=== PATIENT | male | born 1935 | race Caucasian/White ===

== ENCOUNTER 2018-10-10 15:46 | Inpatient (IN) ==
[2018-10-10] MEDS ORDERED: Fluticasone Propionate Nasal 50 MCG/SPRAY BOTTLE NS PRN (22:16)
[2018-10-10] MEDS ORDERED: D5% in Water 1,000 ML IVC PRN (22:40)
[2018-10-10] MEDS ORDERED: Dextrose Gel 15 GM/37.5 ML TUBE PO PRN ×2 (22:40)
[2018-10-10] MEDS ORDERED: *HR* Dextrose 50 % in Water (Syg) 50 ML SYRINGE IVP PRN (22:40)
[2018-10-11 05:29] LABS: Hematocrit 29.8 % (37.5-50.1); Mean Corpuscular HGB Conc 33.6 g/dL (31.6-35.5); Mean Corpuscular Hemoglobin 33.2 pg (28.0-33.3); Platelet Count 283 K/mcL (140-400); Red Blood Count 3.01 M/mcL (4.19-5.50); Red Cell Distribution Width 13.5 % (11.5-14.5)
[2018-10-11 05:49] LABS: BUN/Creatinine Ratio 21 (6-26); Blood Urea Nitrogen 28 mg/dL (8-23); Calcium 8.6 mg/dL (8.6-10.3); Carbon Dioxide 28 mEq/L (23-29); Chloride 102 mEq/L (98-107); Glucose 331 mg/dL (70-105); Osmolality,Calculated 300 (280-300); Potassium 4.7 mEq/L (3.5-5.1); Sodium 136 mEq/L (136-145); eGFR For Non-African Americans 50 (> 60)
[2018-10-11] MEDS ORDERED: Bisacodyl 10 MG RECTAL SUPPOSITORY RC ONE (06:00)
[2018-10-11] MEDS: Insulin LISPRO 300 UNITS/3 ML VIAL SQ SCH ×3 (07:57→16:30)
[2018-10-11] MEDS: Metoprolol XL (24 HR) Succ 25 MG TAB.ER.24H PO SCH (07:58)
[2018-10-11] MEDS: Aspirin Enteric Coated 81 MG Tablet PO SCH (07:58)
[2018-10-11] MEDS: amLODIPine 5 MG TABLET PO SCH (07:59)
[2018-10-11] MEDS: *HR* OxyCODONE Immed Rel 5 MG TABLET PO PRN ×2 (08:00→14:57)
[2018-10-11] MEDS ORDERED: Insulin DETEMIR 100 UNIT/ML X5UNITS SQ SCH (09:00)
--- NOTE | 2018-10-11 11:21 | Internal Med History&Physical ---
Date of Encounter: 10/11/18 Time of Encounter: 11:18 Assessment and Plan (1) S/P kyphoplasty Current visit: Yes Status: Acute Patient admitted here for deconditioning after a kyphoplasty of an L1 compression fracture. Patient had experienced uncontrolled pain prior to kyphoplasty and states that his pain has much improved after his procedure. Surgical incision appears healthy and intact. Patient states to current pain medications have been effective on allowing him to mobilize. Patient has been participating in physical therapy today. No neurological deficits noted on exam. Patient with history of lumbar disc disease. We will continue with current plan of care. (2) CAD (coronary artery disease) Current visit: Yes Status: Chronic No acute issues. Patient has denied any chest discomforts or palpitations. Vital signs are stable. We will continue with current plan of care and medications. Qualifiers: Coronary Disease-Associated Artery/Lesion type: [place] artery [place] vs. transplanted heart: unspecified whether [place] or transplanted heart Associated angina: with unspecified angina Qualified Code(s): I25.119 - Atherosclerotic heart disease of [place] coronary artery with unspecified angina pectoris (3) Diabetes mellitus Current visit: No Status: Chronic Patients glucose currently has been uncontrolled with fingerstick readings greater than 300. We will evaluate patient's long-acting insulin and continue coverage with sliding scale. We will obtain a hemoglobin A1c on next blood draw. Qualifiers: Diabetes mellitus type: type 2 Diabetes mellitus vermin exterminator insulin use: with vermin exterminator use Diabetes mellitus complication status: without complication Qualified Code(s): E11.9 - Type 2 diabetes mellitus without complications; Z79.4 - alf (current) use of insulin (4) Hypertension Current visit: Yes Status: Chronic Vital signs are stable. We will continue with current medications. Qualifiers: Hypertension type: unspecified Qualified Code(s): I10 - Essential (primary) hypertension (5) CKD (chronic kidney disease), stage III Current visit: No Status: Chronic No acute issues this time. Patient's most recent creatinine was 1.35. We will continue to monitor renal status with serial labs. We will continue with current medications Internal Medicine - H&P: HPI Chief complaint: L1 compression Fx Admitted From: Hospital to Hospital Transfer Plans for Post Hospital Care: Home History of present illness: Mr. Briggs is a 82 year old male, who was transferred here from [facility] where he was treated for his L1 compression fracture. Patient was found to have a L1 compression fracture and was experiencing uncontrolled pain. Patient was treated by Dr. Valera with a kyphoplasty which the patient states almost immediately relieved his pain. Patient states that his pain has mostly been to his upper lumbar region and denied any radicular symptoms. Per medical records patient has showed no neurological deficits on exam. Patient has a history of a previous L3-L5 laminectomy, CAD, DM, OA, and hypertension. Patient states he still continues to have slight amount of pain to his upper lumbar area which increases with mobilization, but his pain meds currently have been effective on allowing him to mobilize. Patient denies any current radicular symptoms, dyspnea or chest discomforts. Past Med Surg Social Fam HX - Past Medical History Medical history: arthritis, cancer, coronary artery disease, diabetes, hyperlipidemia, hypertension Additional medical history: skin ca removed face, chronic back pain, spinal canal stenosis, and claustrophobia Psychiatric history: no psych history - Past Surgical History Surgical History: angioplasty/stent Additional surgical history: LUMBAR FUSION/RECONSTRUCTION/HARDWARE, KYPHOPLASTY - Social History Smoking Status: Never smoker Smokeless Tobacco Status: No Alcohol use: none Drug use: none - Family History Father Adopted: No Living Status: Age at : 59 Hx Family Cardiac Disorders: No Hx Family Respiratory Disorders: No Hx Family Cancer: Yes Hx Family GI Disorders: No Hx Family Endocrine Disorder: No Hx Family Neuromuscular Disorders: No Hx Family Neurologic Disorders: No Hx Family HEENT Disorders: No Hx Family Autoimmune Disorders: No Mother Living Status: Hx Family Cardiac Disorders: Yes Hx Family Respiratory Disorders: No Hx Family Cancer: No Hx Family GI Disorders: No Hx Family Endocrine Disorder: No Hx Family Neuromuscular Disorders: No Hx Family Neurologic Disorders: No Hx Family HEENT Disorders: No Hx Family Autoimmune Disorders: No Internal Medicine - H&P: Meds Aspirin [Lo-Dose Aspirin EC] 81 mg PO DAILY 10/05/18 [History] Fluticasone Propionate Nasal [Flonase] 1 spray NS HS PRN 10/05/18 [History] Ibuprofen [Advil] 600 mg PO TID PRN 10/05/18 [History] Insulin Glargine,Hum.rec.anlog [Lantus Solostar] 20 unit SQ DAILY 10/05/18 [History] Levothyroxine Sodium [Levoxyl] 175 mcg PO DAILY 10/05/18 [History] Losartan Potassium 100 mg PO DAILY 10/05/18 [History] Metoprolol Succinate [Toprol Xl] 12.5 mg PO DAILY 10/05/18 [History] Simvastatin [Zocor] 5 mg PO DAILY 10/05/18 [History] Tramadol HCl [Ultram] 50 mg PO HS PRN 10/05/18 [History] amLODIPine [Norvasc] 2.5 mg PO DAILY 10/08/18 [History] Docusate [Colace] 100 mg PO BID PRN capsule 10/10/18 [Rx] Allergy/AdvReac Type Severity Reaction Status Date / Time Penicillins [PCN] AdvReac Rash Verified 10/05/18 08:42 All Systems PM: A 10-system review of systems was performed and is negative for pertinent findings except as documented above in the HPI. - Constitutional Constitutional: as per HPI, no chills, no fever(s), no night sweats - EENT Eyes: as per HPI, no change in vision, no discharge, no pain, no photophobia Ears: no ear discharge, no ear pain, no tinnitus Nose, mouth and throat: no dysphagia, no nasal discharge, no neck pain, no sore throat - Cardiovascular Cardiovascular ROS IM: as per HPI, no chest pain, no diaphoresis, no dyspnea, no lightheadedness, no palpitations, no syncope - Respiratory Respiratory: as per HPI, no cough, no dyspnea, no wheezing, no excessive phlegm production - Gastrointestinal Gastrointestinal: as per HPI, no abdominal pain, no diarrhea, no hematemesis, no hematochezia, no melena, no nausea, no vomiting - Genitourinary Genitourinary ROS male: as per HPI - Musculoskeletal Musculoskeletal ROS IM: as per HPI, no numbness, no tingling - Integumentary Integumentary IM: as per HPI, no rash, no unusual bruising - Neurological Neurological ROS: as per HPI, no confusion, no convulsions, no focal weakness, no numbness, no tingling, no tremor(s) - Psychiatric Psychiatric: as per HPI - Endocrine Endocrine IM: as per HPI - Hematologic/Lymphatic Hematologic/Lymphatic: no easy bruising - Constitutional Vitals: Temp Pulse Resp BP Pulse Ox 98.2 F 71 16 168/83 99 10/11/18 07:35 10/11/18 07:35 10/11/18 07:35 10/11/18 07:35 10/11/18 07:35 General appearance: Present: A&O X 3, pleasant - Head Head exam: Present: atraumatic, normocephalic - Eye Eye exam: Present: PERRL, conjuntiva pink, sclera anicteric Pupils: Present: PERRL - Neck Neck exam general surgery: Present: supple, trachea midline. Absent: lymphadenopathy - Respiratory Respiratory exam: Present: CTAB. Absent: accessory muscle use, rales, rhonchi, wheezes - Cardiovascular Cardiovascular exam: Present: RRR, +S1, +S2. Absent: diastolic murmur, gallop, rubs, systolic murmur - GI/Abdominal GI/Abdominal exam: Present: normal bowel sounds, soft, no peritoneal signs. Absent: distended, tenderness - Extremities Exam Extremities exam: Present: warm, radial pulses palpable and symmetrical. Absent: calf tenderness, cyanotic, pedal edema - Back Exam Additional comments: Patient has a midline lumbar surgical incision to the upper lumbar area which is dry and intact. No erythema or edema noted. - Neurological Exam Neurological exam: Present: CN II-XII intact, oriented X3, no focal deficits. Absent: pronater drift, facial droop, speech deficit - Skin Skin exam: Present: dry, intact Internal Med - H&P Results - Labs CBC & Chem 7: 10/11/18 05:15 10/11/18 05:15 Labs: Short CBC 10/11/18 Range/Units 05:15 WBC 5.1 (4.3-11.1) K/mcL Hgb 10.0 L (12.9-16.9) g/dL Hct 29.8 L (37.5-50.1) % Plt Count 283 (140-400) K/mcL BMP 10/11/18 05:15 Sodium 136 Potassium 4.7 Chloride 102 Carbon Dioxide 28 BUN 28 H Creatinine 1.35 H Glucose 331 H Calcium 8.6 - VTE Documentation of Mechanical Device: Graduated compression elastic hosiery
[2018-10-11] MEDS ORDERED: Insulin LISPRO 300 UNITS/3 ML VIAL SQ SCH (21:00)
[2018-10-12] MEDS: Metoprolol XL (24 HR) Succ 25 MG TAB.ER.24H PO SCH (08:16)
[2018-10-12] MEDS: amLODIPine 5 MG TABLET PO SCH (08:17)
[2018-10-12] MEDS: Aspirin Enteric Coated 81 MG Tablet PO SCH (08:19)
[2018-10-12] MEDS: *HR* OxyCODONE Immed Rel 5 MG TABLET PO PRN (08:19)
[2018-10-12] MEDS: Insulin LISPRO 300 UNITS/3 ML VIAL SQ SCH ×4 (08:23→21:19)
[2018-10-12] MEDS ORDERED: Insulin DETEMIR 100 UNIT/ML X5UNITS SQ SCH (09:00)
[2018-10-12] MEDS ORDERED: Insulin DETEMIR 100 UNIT/ML per UNIT SQ ONE (10:30)
--- NOTE | 2018-10-12 13:56 | Internal Med Progress Note ---
Addendum entered and electronically signed by Valentina Thorpe 10/14/18 17:43: I have personally performed a face to face evaluation on this patient. I have reviewed and agree with the care plan. Original Note: Date of Encounter: 10/12/18 Time of Encounter: 13:50 - Assessment and plan (1) S/P kyphoplasty Current Visit: Yes Status: Acute Assessment and plan: No acute issues. Patient's surgical incision to lumbar spine appears healthy and intact. Patient states that his pain has been well tolerated with current pain medications and that his pain was was relieved following his kyphoplasty. Patient has been participating in physical therapy and progressing well. (2) CAD (coronary artery disease) Current Visit: Yes Status: Chronic Assessment and plan: No acute issues. Patient denies any chest discomforts or palpitations. Vital signs stable. We will continue with current medications. Qualifiers: Coronary Disease-Associated Artery/Lesion type: [place] artery [place] vs. transplanted heart: unspecified whether [place] or transplanted heart Associated angina: with unspecified angina Qualified Code(s): I25.119 - Atherosclerotic heart disease of [place] coronary artery with unspecified angina pectoris (3) Diabetes mellitus Current Visit: Yes Status: Chronic Assessment and plan: Patients glucose has been fairly elevated up until the last 24 hours. Patient had several lower readings today. We will decrease his long-acting insulin dosing and continue to monitor his fingersticks and cover with sliding scale. Qualifiers: Diabetes mellitus type: type 2 Diabetes mellitus long-term insulin use: with long-term use Diabetes mellitus complication status: without complication Qualified Code(s): E11.9 - Type 2 diabetes mellitus without complications; Z79.4 - intermediate card tender (current) use of insulin (4) Hypertension Current Visit: Yes Status: Chronic Assessment and plan: Final signs stable. We will continue with current medications. Qualifiers: Hypertension type: unspecified Qualified Code(s): I10 - Essential (primary) hypertension - Time Spent With Patient less than 15 minutes - Subjective Interval history: Patient appears relaxed currently denies any discomforts or shortness of breath. Patient states that physical therapy has been progressing well. He denies any acute neurological changes. - Constitutional Vitals: Temp Pulse Resp BP Pulse Ox 97.9 F 69 16 144/79 98 10/12/18 07:00 10/12/18 07:00 10/12/18 07:00 10/12/18 07:00 10/12/18 07:00 General appearance: Present: A&O X 3, pleasant - Head Head exam: Present: atraumatic, normocephalic - Eye Eye exam: Present: PERRL, conjuntiva pink, sclera anicteric Pupils: Present: PERRL - Neck Neck exam general surgery: Present: supple, trachea midline. Absent: lymphadenopathy - Respiratory Respiratory exam: Present: CTAB. Absent: accessory muscle use, rales, rhonchi, wheezes - Cardiovascular Cardiovascular exam: Present: RRR, +S1, +S2. Absent: diastolic murmur, gallop, rubs, systolic murmur - GI/Abdominal GI/Abdominal exam: Present: normal bowel sounds, soft, no peritoneal signs. Absent: distended, tenderness - Extremities Exam Extremities exam: Present: warm, radial pulses palpable and symmetrical. Absent: calf tenderness, cyanotic, pedal edema - Back Exam Additional comments: Midline lumbar incision appears dry and intact. No erythema - Neurological Exam Neurological exam: Present: CN II-XII intact, oriented X3, no focal deficits. Absent: pronater drift, facial droop, speech deficit - Skin Skin exam: Present: dry, intact Internal Medicine: Result - Labs CBC & Chem 7: 10/11/18 05:15 10/11/18 05:15 - VTE Documentation of Mechanical Device: Graduated compression elastic hosiery Consult Discharge Plan - Plan Referrals: Emily Parson COMMERCIAL LENDING ASSISTANT [Primary Care Provider] -
[2018-10-13] MEDS: *HR* OxyCODONE Immed Rel 5 MG TABLET PO PRN ×4 (02:09→20:51)
[2018-10-13] MEDS: Aspirin Enteric Coated 81 MG Tablet PO SCH (07:48)
[2018-10-13] MEDS: amLODIPine 5 MG TABLET PO SCH (07:48)
[2018-10-13] MEDS: Metoprolol XL (24 HR) Succ 25 MG TAB.ER.24H PO SCH (07:49)
[2018-10-13] MEDS: Insulin DETEMIR 100 UNIT/ML X5UNITS SQ SCH (07:50)
[2018-10-13] MEDS: Insulin LISPRO 300 UNITS/3 ML VIAL SQ SCH ×4 (07:53→20:51)
[2018-10-13] MEDS ORDERED: Insulin DETEMIR 100 UNIT/ML X5UNITS SQ SCH (09:00)
[2018-10-14] MEDS: *HR* OxyCODONE Immed Rel 5 MG TABLET PO PRN ×3 (05:30→20:04)
[2018-10-14] MEDS: Insulin LISPRO 300 UNITS/3 ML VIAL SQ SCH ×4 (07:48→21:20)
[2018-10-14] MEDS: Insulin DETEMIR 100 UNIT/ML X5UNITS SQ SCH (07:48)
[2018-10-14] MEDS: Aspirin Enteric Coated 81 MG Tablet PO SCH (07:51)
[2018-10-14] MEDS: amLODIPine 5 MG TABLET PO SCH (07:51)
[2018-10-14] MEDS: Metoprolol XL (24 HR) Succ 25 MG TAB.ER.24H PO SCH (07:52)
--- NOTE | 2018-10-14 17:46 | Internal Med Progress Note ---
Date of Encounter: 10/13/18 Time of Encounter: 14:00 - Subjective Interval history: - Assessment and plan (1) S/P kyphoplasty Current Visit: Yes Status: Acute Assessment and plan: No acute issues. Patient's surgical incision to lumbar spine appears healthy and intact. Patient states that his pain has been well tolerated with current pain medications and that his pain was was relieved following his kyphoplasty. Patient has been participating in physical therapy and progressing well. (2) CAD (coronary artery disease) Current Visit: Yes Status: Chronic Assessment and plan: No acute issues. Patient denies any chest discomforts or palpitations. Vital signs stable. We will continue with current medications. Qualifiers: Coronary Disease-Associated Artery/Lesion type: [place] artery [place] vs. transplanted heart: unspecified whether [place] or transplanted heart Associated angina: with unspecified angina Qualified Code(s): I25.119 - Atherosclerotic heart disease of [place] coronary artery with unspecified angina pectoris (3) Diabetes mellitus Current Visit: Yes Status: Chronic Assessment and plan: Patients glucose has been fairly elevated up until the last 24 hours. Patient had several lower readings today. We will decrease his long-acting insulin dosing and continue to monitor his fingersticks and cover with sliding scale. Qualifiers: Diabetes mellitus type: type 2 Diabetes mellitus senior living insulin use: w ith moth exterminator use Diabetes mellitus complication status: without complication Qualified Code(s): E11.9 - Type 2 diabetes mellitus without complications; Z79.4 - long-term (current) use of insulin (4) Hypertension Current Visit: Yes Status: Chronic Assessment and plan: Final signs stable. We will continue with current medications. Qualifiers: Hypertension type: unspecified Qualified Code(s): I10 - Essential (primary) hypertension - Time Spent With Patient less than 15 minutes - Subjective Interval history: Patient appears relaxed currently denies any discomforts or shortness of breath. Patient states that physical therapy has been progressing well. He denies any acute neurological changes. He reports he is eating ok and pain is controlle EXAM General appearance: Present: A&O X 3, pleasant elderly WM - Head Head exam: Present: atraumatic, normocephalic - Eye Eye exam: Present: PERRL, conjuntiva pink, sclera anicteric Pupils: Present: PERRL - Neck Neck exam general surgery: Present: supple, trachea midline. Absent: lymphadenopathy - Respiratory Respiratory exam: Present: CTAB. Absent: accessory muscle use, rales, rhonchi, wheezes - Cardiovascular Cardiovascular exam: Present: RRR, +S1, +S2. Absent: diastolic murmur, gallop, rubs, systolic murmur - GI/Abdominal GI/Abdominal exam: Present: normal bowel sounds, soft, no peritoneal signs. Absent: distended, tenderness - Extremities Exam Extremities exam: Present: warm, radial pulses palpable and symmetrical. Absent: calf tenderness, cyanotic, pedal edema - Back Exam Additional comments: Midline lumbar incision appears dry and intact. No erythema - Neurological Exam Neurological exam: Present: CN II-XII intact, oriented X3, no focal deficits. Absent: pronater drift, facial droop, speech deficit - Skin Skin exam: Present: dry, intact - Constitutional Vitals: Temp Pulse Resp BP Pulse Ox 97.9 F 66 16 125/71 99 10/14/18 07:00 10/14/18 07:00 10/14/18 07:00 10/14/18 07:00 10/14/18 07:00 General appearance: Present: A&O X 3, pleasant Internal Medicine: Result - Labs CBC & Chem 7: 10/11/18 05:15 10/11/18 05:15 - VTE Documentation of Mechanical Device: Graduated compression elastic hosiery Consult Discharge Plan - Plan Referrals: Emily Parson CNP [Primary Care Provider] -
--- NOTE | 2018-10-14 17:47 | Internal Med Progress Note ---
Date of Encounter: 10/14/18 Time of Encounter: 15:00 - Subjective Interval history: - Assessment and plan (1) S/P kyphoplasty Current Visit: Yes Status: Acute Assessment and plan: No acute issues. Patient's surgical incision to lumbar spine appears healthy and intact. Patient states that his pain has been well tolerated with current pain medications and that his pain was was relieved following his kyphoplasty. Patient has been participating in physical therapy and progressing well. (2) CAD (coronary artery disease) Current Visit: Yes Status: Chronic Assessment and plan: No acute issues. Patient denies any chest discomforts or palpitations. Vital signs stable. We will continue with current medications. Qualifiers: Coronary Disease-Associated Artery/Lesion type: [place] artery [place] vs. transplanted heart: unspecified whether [place] or transplanted heart Associated angina: with unspecified angina Qualified Code(s): I25.119 - Atherosclerotic heart disease of [place] coronary artery with unspecified angina pectoris (3) Diabetes mellitus Current Visit: Yes Status: Chronic Assessment and plan: Patients glucose has been fairly elevated up until the last 24 hours. Patient had several lower readings today. We will decrease his long-acting insulin dosing and continue to monitor his fingersticks and cover with sliding scale. Qualifiers: Diabetes mellitus type: type 2 Diabetes mellitus fdc insulin use: w ith laborer marine terminal use Diabetes mellitus complication status: without complication Qualified Code(s): E11.9 - Type 2 diabetes mellitus without complications; Z79.4 - [facility] (current) use of insulin (4) Hypertension Current Visit: Yes Status: Chronic Assessment and plan: Final signs stable. We will continue with current medications. Qualifiers: Hypertension type: unspecified Qualified Code(s): I10 - Essential (primary) hypertension - Time Spent With Patient less than 15 minutes - Subjective Interval history: Patient appears relaxed currently denies any discomforts or shortness of breath. Patient states that physical therapy has been progressing well. He denies any acute neurological changes. He reports he is eating ok and pain is controlle EXAM General appearance: Present: A&O X 3, pleasant elderly WM - Head Head exam: Present: atraumatic, normocephalic - Eye Eye exam: Present: PERRL, conjuntiva pink, sclera anicteric Pupils: Present: PERRL - Neck Neck exam general surgery: Present: supple, trachea midline. Absent: lymphadenopathy - Respiratory Respiratory exam: Present: CTAB. Absent: accessory muscle use, rales, rhonchi, wheezes - Cardiovascular Cardiovascular exam: Present: RRR, +S1, +S2. Absent: diastolic murmur, gallop, rubs, systolic murmur - GI/Abdominal GI/Abdominal exam: Present: normal bowel sounds, soft, no peritoneal signs. Absent: distended, tenderness - Extremities Exam Extremities exam: Present: warm, radial pulses palpable and symmetrical. Absent: calf tenderness, cyanotic, pedal edema - Back Exam Additional comments: Midline lumbar incision appears dry and intact. No erythema - Neurological Exam Neurological exam: Present: CN II-XII intact, oriented X3, no focal deficits. Absent: pronater drift, facial droop, speech deficit - Skin Skin exam: Present: dry, intact - Constitutional Vitals: Temp Pulse Resp BP Pulse Ox 97.9 F 66 16 125/71 99 10/14/18 07:00 10/14/18 07:00 10/14/18 07:00 10/14/18 07:00 10/14/18 07:00 General appearance: Present: A&O X 3, pleasant Internal Medicine: Result - Labs CBC & Chem 7: 10/11/18 05:15 10/11/18 05:15 - VTE Documentation of Mechanical Device: Graduated compression elastic hosiery Consult Discharge Plan - Plan Referrals: Emily Parson CNP [Primary Care Provider] -
[2018-10-15] MEDS: *HR* OxyCODONE Immed Rel 5 MG TABLET PO PRN (05:14)
[2018-10-15] MEDS: Metoprolol XL (24 HR) Succ 25 MG TAB.ER.24H PO SCH (07:59)
[2018-10-15] MEDS: Aspirin Enteric Coated 81 MG Tablet PO SCH (07:59)
[2018-10-15] MEDS: amLODIPine 5 MG TABLET PO SCH (08:00)
[2018-10-15] MEDS: Insulin LISPRO 300 UNITS/3 ML VIAL SQ SCH ×4 (08:05→21:45)
[2018-10-15] MEDS: Insulin DETEMIR 100 UNIT/ML X5UNITS SQ SCH (08:07)
[2018-10-15 09:49] LABS: Basophils # 0.1 K/mcL (0.0-0.2); Basophils % 0.8 %; Eosinophils # 0.5 K/mcL (0.0-0.6); Eosinophils % 6.3 %; Hematocrit 32.6 % (37.5-50.1); Hemoglobin 10.7 g/dL (12.9-16.9); Immature Granulocytes % 0.8 % (0-4); Lymphocytes # 1.3 K/mcL (0.6-4.6); Lymphocytes % 17.4 %; Mean Corpuscular HGB Conc 32.8 g/dL (31.6-35.5); Mean Corpuscular Hemoglobin 33.2 pg (28.0-33.3); Mean Corpuscular Volume 101.2 fL (83.0-100.0); Mean Platelet Volume 9.9 fL (9.4-12.4); Monocytes # 0.6 K/mcL (0.0-1.3); Monocytes % 7.4 %; Platelet Count 367 K/mcL (140-400); Red Blood Count 3.22 M/mcL (4.19-5.50); Red Cell Distribution Width 13.3 % (11.5-14.5); Segmented Neutrophils % 67.3 %
[2018-10-15 10:19] LABS: Calcium 9.2 mg/dL (8.6-10.3); Potassium 4.9 mEq/L (3.5-5.1)
--- NOTE | 2018-10-15 14:04 | Internal Med Progress Note ---
Addendum entered and electronically signed by Alberto Scruggs MD 10/15/18 16:00: I have personally performed a face to face evaluation on this patient. I have r eviewed and agree with the care plan. History and Exam by me shows: Patient son has concerns about his eating. On further questioning, the patient states that he has not been eating well since [place]. He attributes this pain. I related that this might be related to pain and pain medicine. We will treat him with Tylenol and tramadol and try to avoid stronger pain medicines. He feels that he is moving his bowels well, about every other day. Patient denies other medical issues. Discussed care with other providers and/or nursing. Patient has no complaint of chest discomfort, dyspnea, orthopnea, palpitations, nausea or vomiting, constipation or diarrhea, other changes in bowel habits, difficulty with urination, rash or itching, or other new complaints, except as mentioned above. Review of systems is otherwise negative. Examination: (Except as mentioned above): General: In no apparent distress. Alert and oriented 3. Nondiaphoretic. Head: Atraumatic and normocephalic. Respiratory: No use of accessory muscles. Lungs are clear throughout. Normal airflow. Cardiovascular: Regular rate and rhythm without murmur appreciated. Abdomen: Bowel sounds are normal. No hepatosplenomegaly mass or tenderness appreciated. Obese and therefore difficult to palpate deeply. Extremities: No cyanosis clubbing or edema. Patient is examined upright at bedside and this also limits exam. Skin: Warm and non-diaphoretic with no new lesions noted. Original Note: Date of Encounter: 10/15/18 Time of Encounter: 14:02 - Assessment and plan (1) S/P kyphoplasty Current Visit: Yes Status: Acute Assessment and plan: No acute issues. Patient's surgical incision to lumbar spine appears healthy and intact. Patient states that his pain has been improving and resolving daily . Patient has been participating in physical therapy and progressing well. (2) CAD (coronary artery disease) Current Visit: Yes Status: Chronic Assessment and plan: No acute issues. Patient denies any chest discomforts or palpitations. Vital signs stable. We will continue with current medications. Qualifiers: Coronary Disease-Associated Artery/Lesion type: [place] artery [place] vs. transplanted heart: unspecified whether [place] or transplanted heart Associated angina: with unspecified angina Qualified Code(s): I25.119 - Atherosclerotic heart disease of [place] coronary artery with unspecified angina pectoris (3) Diabetes mellitus Current Visit: Yes Status: Chronic Assessment and plan: Patients glucose has been greater than 200 on multiple fingersticks. We will continue with sliding scale coverage and monitor needs for titration of his long-acting insulin. 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 We will continue with current medications. Qualifiers: Hypertension type: unspecified Qualified Code(s): I10 - Essential (primary) hypertension - Time Spent With Patient less than 15 minutes - Subjective Interval history: Patient appears relaxed currently denies any discomforts or shortness of breath. Patient states that physical therapy has been progressing well. He denies any acute neurological changes. Patient states that his pain has been resolving slowly over the past several days. - Constitutional Vitals: Temp Pulse Resp BP Pulse Ox 98.6 F 63 16 133/67 98 10/15/18 06:33 10/15/18 06:33 10/15/18 06:33 10/15/18 06:33 10/15/18 06:33 General appearance: Present: A&O X 3, pleasant - Head Head exam: Present: atraumatic, normocephalic - Eye Eye exam: Present: PERRL, conjuntiva pink, sclera anicteric Pupils: Present: PERRL - Neck Neck exam general surgery: Present: supple, trachea midline. Absent: lymphadenopathy - Respiratory Respiratory exam: Present: CTAB. Absent: accessory muscle use, rales, rhonchi, wheezes - Cardiovascular Cardiovascular exam: Present: RRR, +S1, +S2. Absent: diastolic murmur, gallop, rubs, systolic murmur - GI/Abdominal GI/Abdominal exam: Present: normal bowel sounds, soft, no peritoneal signs. Absent: distended, tenderness - Extremities Exam Extremities exam: Present: warm, radial pulses palpable and symmetrical. Absent: calf tenderness, cyanotic, pedal edema - Back Exam Additional comments: Patient has a midline lumbar surgical incision appears dry and intact with no edema or erythema noted. - Neurological Exam Neurological exam: Present: CN II-XII intact, oriented X3, no focal deficits. Absent: pronater drift, facial droop, speech deficit - Skin Skin exam: Present: dry, intact Internal Medicine: Result - Labs CBC & Chem 7: 10/15/18 09:34 10/15/18 09:34 Labs: Short CBC 10/15/18 Range/Units 09:34 WBC 7.4 (4.3-11.1) K/mcL Hgb 10.7 L (12.9-16.9) g/dL Hct 32.6 L (37.5-50.1) % Plt Count 367 (140-400) K/mcL Neutrophils # 5.0 (1.6-8.9) K/mcL BMP 10/15/18 09:34 Sodium 134 L Potassium 4.9 Chloride 101 Carbon Dioxide 25 BUN 41 H Creatinine 1.81 H Glucose 265 H Calcium 9.2 - VTE Documentation of Mechanical Device: Graduated compression elastic hosiery Consult Discharge Plan - Plan Referrals: Emily Parson, [facility] SEWER [Primary Care Provider] -
[2018-10-15] MEDS ORDERED: traMADol 50 MG TABLET PO PRN (14:28)
[2018-10-16] MEDS: Aspirin Enteric Coated 81 MG Tablet PO SCH (08:29)
[2018-10-16] MEDS: amLODIPine 5 MG TABLET PO SCH (08:29)
[2018-10-16] MEDS: Metoprolol XL (24 HR) Succ 25 MG TAB.ER.24H PO SCH (08:31)
[2018-10-16] MEDS: Insulin DETEMIR 100 UNIT/ML X5UNITS SQ SCH (08:37)
[2018-10-16] MEDS: Insulin LISPRO 300 UNITS/3 ML VIAL SQ SCH ×4 (08:37→22:06)
--- NOTE | 2018-10-16 11:35 | Internal Med Progress Note ---
Addendum entered and electronically signed by Alberto Scruggs MD 10/16/18 13:17: I have personally performed a face to face evaluation on this patient. I have r eviewed and agree with the care plan. History and Exam by me shows: Patient is without complaint. He his not moved his bowels in a couple of days we talked about the use of laxative, as well. Pain control is been acceptable, given the change to tramadol. Discussed care with other providers and/or nursing. Patient has no complaint of chest discomfort, dyspnea, orthopnea, palpitations, nausea or vomiting, constipation or diarrhea, other changes in bowel habits, difficulty with urination, rash or itching, or other new complaints, except as mentioned above. Review of systems is otherwise negative. Examination: (Except as mentioned above): General: In no apparent distress. Alert and oriented 3. Nondiaphoretic. Head: Atraumatic and normocephalic. Respiratory: No use of accessory muscles. Lungs are clear throughout. Normal airflow. Cardiovascular: Regular rate and rhythm without murmur appreciated. Abdomen: Bowel sounds are normal. No hepatosplenomegaly mass or tenderness appreciated. Obese and therefore difficult to palpate deeply. Extremities: No cyanosis clubbing or edema. Patient is examined upright in chair and this also limits exam. Skin: Warm and non-diaphoretic with no new lesions noted. Plan is to discharge him on 10/18/2018. Original Note: Date of Encounter: 10/16/18 Time of Encounter: 11:33 - Assessment and plan (1) S/P kyphoplasty Current Visit: Yes Status: Acute Assessment and plan: Incision healing. Follow up with surgeon as scheduled. Continue PT and OT. Will follow progress. Pain controlled with Tylenol and tramadol. (2) Diabetes mellitus Current Visit: Yes Status: Chronic Assessment and plan: Controlled with current medication. Continue sliding scale insulin. Monitor fingerstick blood sugar. 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 Monitor blood pressure. Qualifiers: Hypertension type: unspecified Qualified Code(s): I10 - Essential (primary) hypertension (4) CAD (coronary artery disease) Current Visit: Yes Status: Chronic Assessment and plan: Denies chest pain. Stable. Continue current medication. Qualifiers: Coronary Disease-Associated Artery/Lesion type: [place] artery [place] vs. transplanted heart: unspecified whether [place] or transplanted heart Associated angina: with unspecified angina Qualified Code(s): I25.119 - Atherosclerotic heart disease of [place] coronary artery with unspecified angina pectoris - Time Spent With Patient less than 15 minutes - Subjective Interval history: Participating well with therapy. Ambulating with Walker. Taking Tylenol or tramadol for pain. Hemoglobin stable at 10.7. Maintaining appetite and hydration. Denies any concerns at this time. - Constitutional Vitals: Temp Pulse Resp BP Pulse Ox 98.3 F 68 15 150/75 98 10/16/18 07:51 10/16/18 07:51 10/16/18 07:51 10/16/18 07:51 10/16/18 07:51 General appearance: Present: cooperative, A&O X 3, pleasant, no acute distress, answers questions appropriately - Head Head exam: Present: atraumatic, normocephalic - Eye Eye exam: Present: PERRL, conjuntiva pink, sclera anicteric Pupils: Present: PERRL - Neck Neck exam general surgery: Present: supple, trachea midline. Absent: lymphadenopathy - Respiratory Respiratory exam: Present: CTAB. Absent: accessory muscle use, rales, rhonchi, wheezes - Cardiovascular Cardiovascular exam: Present: RRR, +S1, +S2. Absent: diastolic murmur, gallop, rubs, systolic murmur - GI/Abdominal GI/Abdominal exam: Present: normal bowel sounds, soft, no peritoneal signs. Absent: distended, tenderness - Extremities Exam Extremities exam: Present: warm, radial pulses palpable and symmetrical. Absent: calf tenderness, cyanotic, pedal edema - Incison Comments: Mid lower thoracic incision, 2 sutures intact. No redness or drainage. - Neurological Exam Neurological exam: Present: CN II-XII intact, oriented X3, no focal deficits. Absent: pronater drift, facial droop, speech deficit - Skin Skin exam: Present: dry, intact Internal Medicine: Result - Labs CBC & Chem 7: 10/15/18 09:34 10/15/18 09:34 - VTE Documentation of Mechanical Device: Graduated compression elastic hosiery Consult Discharge Plan - Plan Referrals: Emily Parson, SPEED[employer] HAND [Primary Care Provider] -
[2018-10-16 16:15] LABS: Albumin 3.6 g/dL (3.5-5.7); Albumin/Globulin Ratio 1.4 (1.1-2.2); Bilirubin,Total 0.5 mg/dL (0.3-1.0); Calcium 9.3 mg/dL (8.6-10.3); Globulin 2.6 g/dL (2.4-3.5); Potassium 4.3 mEq/L (3.5-5.1); Total Protein 6.2 g/dL (6.4-8.9)
[2018-10-16 16:38] LABS: Thyroid Stimulating Hormone 0.733 mcIU/mL (0.340-5.600)
[2018-10-17 05:47] LABS: Calcium 8.7 mg/dL (8.6-10.3); Potassium 5.1 mEq/L (3.5-5.1)
[2018-10-17] MEDS: Insulin LISPRO 300 UNITS/3 ML VIAL SQ SCH ×4 (07:53→21:11)
[2018-10-17] MEDS: Metoprolol XL (24 HR) Succ 25 MG TAB.ER.24H PO SCH (07:55)
[2018-10-17] MEDS: amLODIPine 5 MG TABLET PO SCH (07:56)
[2018-10-17] MEDS: Aspirin Enteric Coated 81 MG Tablet PO SCH (07:56)
[2018-10-17] MEDS: Insulin DETEMIR 100 UNIT/ML X5UNITS SQ SCH (08:07)
--- NOTE | 2018-10-17 11:48 | Internal Med Progress Note ---
Date of Encounter: 10/17/18 Time of Encounter: 11:30 - Assessment and plan (1) Vertebral compression fracture Current Visit: No Status: Acute Assessment and plan: Patient is doing well after kyphoplasty. Plans for discharge tomorrow with continued therapy until then. Tylenol for pain management, only. (2) Hypertension Current Visit: Yes Status: Chronic Assessment and plan: Clinically stable. We will continue home regimen and follow. Qualifiers: Hypertension type: unspecified Qualified Code(s): I10 - Essential (primary) hypertension (3) Constipation Current Visit: No Status: Acute Assessment and plan: Resolved, per patient. Qualifiers: Constipation type: slow transit constipation Qualified Code(s): K59.01 - Slow transit constipation (4) Renal insufficiency Current Visit: No Status: Resolved Assessment and plan: Clinically and per laboratory, stable. (5) CAD (coronary artery disease) Current Visit: Yes Status: Chronic Assessment and plan: Stable without signs or symptoms. Qualifiers: Coronary Disease-Associated Artery/Lesion type: [place] artery [place] vs. transplanted heart: unspecified whether [place] or transplanted heart Associated angina: with unspecified angina Qualified Code(s): I25.119 - Atherosclerotic heart disease of [place] coronary artery with unspecified angina pectoris (6) Diabetes mellitus Current Visit: Yes Status: Chronic Assessment and plan: Well-tolerated and stable on current regimen. 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 He states that he has a home visit with his family, at 11:00 tomorrow morning. He asked questions about safety doses of Tylenol and I explained that I would like to tenisha p that below 3000 mg per day or that dose maximum. Patient has no complaint of chest discomfort, dyspnea, orthopnea, palpitations, nausea or vomiting, constipation or diarrhea, other changes in bowel habits, difficulty with urination, rash or itching, or other new complaints, except as mentioned above. Review of systems is otherwise negative. I discussed management of her care with nursing staff. - Constitutional Vitals: Temp Pulse Resp BP Pulse Ox 99.1 F 71 16 134/68 100 10/17/18 06:50 10/17/18 06:50 10/17/18 06:50 10/17/18 06:50 10/17/18 06:50 Exam: Discussed care with other providers and/or nursing. Patient has no complaint of chest discomfort, dyspnea, orthopnea, palpitations, nausea or vomiting, constipation or diarrhea, other changes in bowel habits, difficulty with urination, rash or itching, or other new complaints, except as mentioned above. Review of systems is otherwise negative. Examination: (Except as mentioned above): General: In no apparent distress. Alert and oriented 3. Nondiaphoretic. Head: Atraumatic and normocephalic. Respiratory: No use of accessory muscles. Lungs are clear throughout. Normal airflow. Cardiovascular: Regular rate and rhythm without murmur appreciated. Abdomen: Bowel sounds are normal. No hepatosplenomegaly mass or tenderness appreciated. Obese and therefore difficult to palpate deeply. The patient requires a wheelchair to successfully complete activities of daily living including: Toileting, feeding, bathing, dressing, and grooming. This includes daily tasks in the home. The wheelchair is necessary due to the patient's impaired ambulation and mobility restrictions as they would be unable to resolve these daily living tasks using a cane or walker. The patient is capable of using a wheelchair safely in the home and can maneuver within the home without problems; they have adequate access. They are able to self propel a wheelchair within the home. The patient has not expressed an unwillingness to use the wheelchair. Extremities: No cyanosis clubbing or edema. Skin: Warm and non-diaphoretic with no new lesions noted. Internal Medicine: Result - Labs CBC & Chem 7: 10/15/18 09:34 10/17/18 05:25 Labs: BMP 10/16/18 10/17/18 15:58 05:25 Sodium 139 137 Potassium 4.3 5.1 Chloride 105 106 Carbon Dioxide 27 28 BUN 50 H 45 H Creatinine 1.74 H 1.47 H Glucose 61 L 159 H Calcium 9.3 8.7 Liver Function 10/16/18 Range/Units 15:58 Total Bilirubin 0.5 (0.3-1.0) mg/dL AST 41 H (13-39) Units/L ALT 62 H (7-52) Units/L Alkaline Phosphatase 296 H (34-104) Units/L Albumin 3.6 (3.5-5.7) g/dL - VTE Documentation of Mechanical Device: Graduated compression elastic hosiery Consult Discharge Plan - Plan Referrals: Emily Parson, BUSINESS SERVICES DIRECTOR [Primary Care Provider] -
--- NOTE | 2018-10-17 15:41 | Psychological Evaluation ---
Date of Encounter: 10/17/18 Time of Encounter: 10:30 History of Present Illness History of present illness: Mr. Briggs is a 82 year old male admitted for deconditioning after a kyphoplasty of an L1 compression fracture. Patient had experienced uncontrolled pain prior to kyphoplasty and states that his pain has much improved after his procedure. Past Medical History - Psychiatric History Psychiatric history: Reports: no psych history Home Medications and Allergies Aspirin [Lo-Dose Aspirin EC] 81 mg PO DAILY 10/05/18 [History] Fluticasone Propionate Nasal [Flonase] 1 spray NS HS PRN 10/05/18 [History] Ibuprofen [Advil] 600 mg PO TID PRN 10/05/18 [History] Insulin Glargine,Hum.rec.anlog [Lantus Solostar] 20 unit SQ DAILY 10/05/18 [History] Levothyroxine Sodium [Levoxyl] 175 mcg PO DAILY 10/05/18 [History] Losartan Potassium 100 mg PO DAILY 10/05/18 [History] Metoprolol Succinate [Toprol Xl] 12.5 mg PO DAILY 10/05/18 [History] Simvastatin [Zocor] 5 mg PO DAILY 10/05/18 [History] Tramadol HCl [Ultram] 50 mg PO HS PRN 10/05/18 [History] amLODIPine [Norvasc] 2.5 mg PO DAILY 10/08/18 [History] Docusate [Colace] 100 mg PO BID PRN capsule 10/10/18 [Rx] Allergy/AdvReac Type Severity Reaction Status Date / Time Penicillins [PCN] AdvReac Rash Verified 10/05/18 08:42 Social History - Social History Social History: Lives alone with dog. Has 2 sons who are in contact. 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 Moved to [place] 2000. after 25 years of marriage. - Tobacco Use Smoking Status: Never smoker - Alcohol Use Alcohol Use: none - Drug Use Drug Use: none Cognitive/Emotional Assessment - Cognitive Ability Attention Span Ability: Capable of Focused Attention Language Function Ability: No Deficits Noted Verbal Communication Ability: Conversational Style Problem Solving Ability: Able To Solve Simple Problems Level of Alertness: Alert Memory Description: Recent Intact (Difficulty noted with divided attention and slowed processing speed. ) Orientation: Person, Place, Time, Day of Week, Month, Year Ability to Follow Directions: Good Speech Pattern: Normal rate Thought Process: Goal Oriented Additional Findings: Knew pres, previous pres, governor, Unable to spell WORLD backward; digits forward 6, digits backward 4; 3/3 words immediately and 2/3 after 5minsimple calculations and serial 3's completed. - Emotional Status Mood Description: Euthymic/stable Affect Description: Full range Coping Ability: Verbalizes positive coping skills Assessment & Plan - Diagnosis (1) Cognitive and behavioral changes - Prognosis Prognosis: Fair - Treatment Plan Treatment Plan/Recommendations: Follow as needed while inpt to develop and train strategies to compensate for attentional and processing issues. Increase insight and awareness of changes in cognition and effects on functioning.
[2018-10-17] MEDS: Acetaminophen 325 MG TABLET PO PRN (17:11)
[2018-10-18] MEDS: Acetaminophen 325 MG TABLET PO PRN (03:10)
[2018-10-18 06:39] VITALS: BP 116/61
[2018-10-18] MEDS: Aspirin Enteric Coated 81 MG Tablet PO SCH (08:15)
[2018-10-18] MEDS: Metoprolol XL (24 HR) Succ 25 MG TAB.ER.24H PO SCH (08:15)
[2018-10-18] MEDS: amLODIPine 5 MG TABLET PO SCH (08:15)
[2018-10-18] MEDS: Insulin LISPRO 300 UNITS/3 ML VIAL SQ SCH (08:17)
[2018-10-18] MEDS: Insulin DETEMIR 100 UNIT/ML X5UNITS SQ SCH (09:24)
--- NOTE | 2018-10-18 10:20 | Discharge Summary ---
Addendum entered and electronically signed by Alberto Scruggs MD 10/18/18 11:42: I have personally performed a face to face evaluation on this patient. I have r eviewed and agree with the care plan. History and Exam by me shows: Patient without complaint and is pleased to be going home. He has no questions or does his son. Discussed care with other providers and/or nursing. Patient has no complaint of chest discomfort, dyspnea, orthopnea, palpitations, nausea or vomiting, constipation or diarrhea, other changes in bowel habits, difficulty with urination, rash or itching, or other new complaints, except as mentioned above. Review of systems is otherwise negative. Examination: (Except as mentioned above): General: In no apparent distress. Alert and oriented 3. Nondiaphoretic. Head: Atraumatic and normocephalic. Respiratory: No use of accessory muscles. Lungs are clear throughout. Normal airflow. Cardiovascular: Regular rate and rhythm without murmur appreciated. Abdomen: Bowel sounds are normal. No hepatosplenomegaly mass or tenderness appreciated. Obese and therefore difficult to palpate deeply. Patient is examined upright in chair and this also limits exam. Extremities: No cyanosis clubbing or edema. Skin: Warm and non-diaphoretic with no new lesions noted. Original Note: Orders not resulted at time of discharge: Pending orders 10/22/18 04:00 Basic Metabolic Panel MO 10/29/18 04:00 Basic Metabolic Panel MO 11/05/18 04:00 Basic Metabolic Panel MO 11/12/18 04:00 Basic Metabolic Panel MO 11/19/18 04:00 Basic Metabolic Panel MO 11/26/18 04:00 Basic Metabolic Panel MO 12/03/18 04:00 Basic Metabolic Panel MO Date of Encounter: 10/18/18 Time of Encounter: 10:17 - Discharge Diagnosis (1) S/P kyphoplasty Priority: Primary Status: Acute Comments: No acute issues. Patient had kyphoplasty performed with midline lumbar surgical incision appearing dry and intact. No erythema or ecchymosis noted. Patient has had pain well-controlled, stating that his kyphoplasty provided almost immediate relief. Denies any radicular symptoms. (2) CAD (coronary artery disease) Priority: Secondary Status: Chronic Comments: No acute issues during this status facility. Patient is continue with home medications after discharge and follow-up with PCP. Qualifiers: Coronary Disease-Associated Artery/Lesion type: [place] artery [place] vs. t ransplanted heart: unspecified whether [place] or transplanted heart Associated angina: with unspecified angina Qualified Code(s): I25.119 - Atherosclerotic heart disease of [place] coronary artery with unspecified angina pectoris (3) Diabetes mellitus Priority: Secondary Status: Chronic Comments: Patient's glucose remained slightly elevated on multiple checks. Patient's medications were titrated for better coverage. Patient is a continue on current dosing and follow-up with PCP within one week. 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 We will continue with current home medications. Qualifiers: Hypertension type: unspecified Qualified Code(s): I10 - Essential (primary) hypertension Hospital course: Mr. Briggs is a 82 year old male, transferred here from [facility] status post right total knee replacement for PT and OT. Surgery was performed by Dr. Rivera on . Patient states pain has been well controlled. Midline lumbar surgical incision from kyphoplasty appears dry and intact. Patient stated almost immediate pain relieved after this procedure and currently denies any radicular symptoms. Patient is to maintain a PCP for further follow- up care. Patient is being discharged to home with continued therapy through home health services. Discharge discussed with: patient Time spent discussing smoking cessation with patient: 3 to 10 minutes - Time Spent with Patient Total time spent providing and/or coordinating discharge services: Less than 30 minutes - Discharge Medications Home Medications: Aspirin [Lo-Dose Aspirin EC] 81 mg PO DAILY 10/05/18 [History] Fluticasone Propionate Nasal [Flonase] 1 spray NS HS PRN 10/05/18 [History] Ibuprofen [Advil] 600 mg PO TID PRN 10/05/18 [History] Insulin Glargine,Hum.rec.anlog [Lantus Solostar] 20 unit SQ DAILY 10/05/18 [History] Levothyroxine Sodium [Levoxyl] 175 mcg PO DAILY 10/05/18 [History] Losartan Potassium 100 mg PO DAILY 10/05/18 [History] Metoprolol Succinate [Toprol Xl] 12.5 mg PO DAILY 10/05/18 [History] Simvastatin [Zocor] 5 mg PO DAILY 10/05/18 [History] Tramadol HCl [Ultram] 50 mg PO HS PRN 10/05/18 [History] amLODIPine [Norvasc] 2.5 mg PO DAILY 10/08/18 [History] Docusate [Colace] 100 mg PO BID PRN capsule 10/10/18 [Rx] Allergies/Adverse Reactions: 3 Allergy/AdvReac Type Severity Reaction Status Date / Time Penicillins [PCN] AdvReac Rash Verified 10/05/18 08:42 Date of admission: 10/10/18 19:37 Primary care physician: Emily Parson CNP Consults: 10/10/18 21:43 Consult to Snake Charmer [CONS] Routine Reason for SW Consult: discharge planning 10/10/18 22:29 Consult to Occupational Therapy [CONS] Routine Comment: Evaluate, develop and implement POC Reason for Consult: evaluate and treat Does patient have active BEDREST order?: No Is patient medically & hemodynamically stable?: Yes Patient assessed for mobility or mobilized this visit?: Yes Consult to Physical Therapy [CONS] Routine Comment: Evaluate, develop and implement POC Reason for Consult: evaluate and treat Does patient have active BEDREST order?: No Is patient medically & hemodynamically stable?: Yes Patient assessed for mobility or mobilized this visit?: Yes Consult to Recreational Therapy [CONS] Routine Comment: Evaluate, develop and implement POC 10/11/18 00:50 dietary consult [Consult to Nutrition] [CONS] Routine Comment: Consulting Provider: NUTRITION Reason for Dietary Consult: PO Supplementation 10/15/18 15:59 Consult to Psychology [CONS] Routine Consulting Provider: Sakshi Sandoval Reason for Consult: Possible depression; adjustment disorder Call Completed: No Discharging clinician: Alberto Scruggs - Constitutional Vitals: Temp Pulse Resp BP Pulse Ox 98.2 F 70 18 116/61 98 10/18/18 06:34 10/18/18 06:34 10/18/18 06:34 10/18/18 06:34 10/18/18 06:34 General appearance: Present: cooperative, A&O X 3, pleasant, no acute distress, answers questions appropriately - Head Head exam: Present: atraumatic, normocephalic - Eye Eye exam: Present: PERRL, conjuntiva pink, sclera anicteric Pupils: Present: PERRL - Neck Neck exam general surgery: Present: supple, trachea midline. Absent: lymphadenopathy - Respiratory Respiratory exam: Present: CTAB. Absent: accessory muscle use, rales, rhonchi, wheezes - Cardiovascular Cardiovascular exam: Present: RRR, +S1, +S2. Absent: diastolic murmur, gallop, rubs, systolic murmur - GI/Abdominal GI/Abdominal exam: Present: normal bowel sounds, soft, no peritoneal signs. Absent: distended, tenderness - Extremities Exam Extremities exam: Present: warm, radial pulses palpable and symmetrical. Absent: calf tenderness, cyanotic, pedal edema - Back Exam Additional comments: Midline lumbar surgical incision remains healthy and intact. - Neurological Exam Neurological exam: Present: CN II-XII intact, oriented X3, no focal deficits. Absent: pronater drift, facial droop, speech deficit - Skin Skin exam: Present: dry, intact - Patient Status Disposition: Home Health Service Condition: Good Functional capacity at discharge: uses cane/walker Overall status at discharge: patient is progressing back to baseline - Discharge Instructions Follow Up With: Emily Parson CNP [Primary Care Provider] - 10/23/18 9:00 am (please fax dischare paperwork including med list to [phone]) - Diet and Activity Activity: as per physical therapy, increase activity as tolerated Diet: diabetic diet - VTE Documentation of Mechanical Device: Graduated compression elastic hosiery
--- NOTE | 2018-10-18 10:23 | Physician Discharge Referral ---
Addendum entered and electronically signed by Alberto Scruggs MD 10/18/18 11:43: Original Note: Home Health/Hosp Referral Info Transfer to: Home Health Provider in Charge Post Discharge: PCP - Diagnosis (1) S/P kyphoplasty Priority: Primary Status: Acute (2) CAD (coronary artery disease) Priority: Secondary Status: Chronic (3) Diabetes mellitus Priority: Secondary Status: Chronic (4) Hypertension Priority: Secondary Status: Chronic - Respiratory Orders Smoking Cessation: Smoking cessation has been advised. For more information, call the [place] Tobacco Quit Line at 9-044-DSNR-NOW. - Diet/Nutrition Diet/Nutrition Orders: No Concentrated Sweets - Activity Activity Orders: Up ad barbara, Walker - Services Needed Following services are medically necessary services: Nursing, Physical Therapy - Transfer Medications Home Medications: Aspirin [Lo-Dose Aspirin EC] 81 mg PO DAILY 10/05/18 [History] Fluticasone Propionate Nasal [Flonase] 1 spray NS HS PRN 10/05/18 [History] Ibuprofen [Advil] 600 mg PO TID PRN 10/05/18 [History] Insulin Glargine,Hum.rec.anlog [Lantus Solostar] 20 unit SQ DAILY 10/05/18 [History] Levothyroxine Sodium [Levoxyl] 175 mcg PO DAILY 10/05/18 [History] Losartan Potassium 100 mg PO DAILY 10/05/18 [History] Metoprolol Succinate [Toprol Xl] 12.5 mg PO DAILY 10/05/18 [History] Simvastatin [Zocor] 5 mg PO DAILY 10/05/18 [History] Tramadol HCl [Ultram] 50 mg PO HS PRN 10/05/18 [History] amLODIPine [Norvasc] 2.5 mg PO DAILY 10/08/18 [History] Docusate [Colace] 100 mg PO BID PRN capsule 10/10/18 [Rx] Allergies/Adverse Reactions: Allergy/AdvReac Type Severity Reaction Status Date / Time Penicillins [PCN] AdvReac Rash Verified 10/05/18 08:42 Certification: Further, I certify that my clinical findings support that this patient is homebound (i.e. absences from home require considerable and taxing effort and are for medical reasons or orthodox services or infrequently or short duration when for other reasons) because: Homebound Reason: Leaving home requires considerable and taxing effort due to condition Attestation: My signature below is to certify that this patient is under my care and that I, or nurse practitioner, or a physician's foundation assistant working with me, has a [id number] encounter with this patient.
== END 2018-10-18 10:48 | disposition home health service (06) | DRG 950 ==
LOC: INPGRE 19:37